=== PATIENT | male | born 1980 | race African-American/Black ===

== ENCOUNTER 2019-06-03 18:11 | Emergency (ER) | payer BC ==
[~2019-06-03] VITALS: Ht 180.3 cm; Wt 87.0 kg
[2019-06-03] MEDS ORDERED: IPRATROPIUM BROMIDE (0.02%) 0.5MG/2.5ML NEB HHN STA (22:31)
[2019-06-03] MEDS ORDERED: ALBUTEROL (0.083%) 2.5MG/3ML NEB HHN STA (22:31)
[2019-06-04 00:14] VITALS: BP 127/75
== END 2019-06-04 00:15 | disposition home or self-care (01) ==
LOC: ER 18:11
DX: J40 Bronchitis, not specified as acute or chronic (principal)
CPT/HCPCS: 71045; 94640; 99283; J7611; Z7610